=== PATIENT | female | born 1980 | race Caucasian/White ===

== ENCOUNTER 2022-09-10 07:20 | Outpatient (CLI) | payer OTHER ==
--- NOTE | 2022-09-10 10:41 | MRI Report ---
PROCEDURE: KNEE WO - LT INDICATIONS: KNEE PAIN TECHNIQUE: Noncontrast sagittal PD fast spin echo and T2 fast spin echo with fat saturation, sagittal 3-D gradie nt sequence with fat saturation; coronal T1 spin echo and PD fast spin echo with fat saturation, and axial PD fast spin echo with fat saturation through the knee. COMPARISON: None. FINDINGS: Image quality: Excellent. Menisci: The medial and lateral menisci demonstrate normal morphology and internal signal. The meni scal root ligaments appear intact. Cruciate ligaments: The anterior and posterior cruciate ligaments appear intact. Medial structures: The medial collateral ligament appears intact. Visualized portions of the pes ans erinus tendons appear normal. No abnormal bursal fluid. Lateral structures: The lateral collateral ligament, long and short heads of the biceps femoris tend on appear intact. The popliteus tendon appears normal. Iliotibial band appears normal. Anterior structures: The quadriceps and patellar tendons appear intact. Patellar alignment is ro l. There is moderate edema within the superolateral aspect of infrapatellar fat pad. Mild lateral pat ellar subluxation is present. Mild lateral ventral trochlear prominence is present. Bones and cartilage: No bone marrow contusions or fractures. There is mild degenerative marrow edema within the lateral patellar facet. There is mild tricompartment periarticular osteophyte formation. There is moderate articular cartilage loss diffusely overlying the weightbearing aspects of the media l femoral condyle and medial tibial plateau with superimposed high-grade articular cartilage loss ove rlying the mid/posterior weightbearing aspect of the medial femoral condyle. Mild articular cartilage loss diffusely overlies the weightbearing aspects of the lateral femoral condyle and lateral tibial plateau with a superimposed high-grade region of articular cartilage loss spanning 10 mm overlying th e posterior weightbearing aspect of the lateral femoral condyle. Severe articular cartilage loss over lies the lateral patellar facet inferiorly. Joint space: There is a small knee joint effusion. No Fulton's cyst. Normal appearing synovial plica e are incidentally noted. IMPRESSION: 1. No internal derangement. 2. Tricompartmental osteoarthritis with associated articular cartilage loss. 3. Findings consistent with lateral patellofemoral friction syndrome in the appropriate clinical sett ing. 4. Small knee joint effusion. Reviewed by: Bárbara Moody MD on 09/10/2022 10:40 AM PDT Approved by: Bárbara Moody MD on 09/10/2022 10:40 AM PDT Station ID: [id number]
--- NOTE | 2022-09-10 16:55 | MRI Report ---
PROCEDURE: KNEE WO - RT INDICATIONS: KNEE PAIN TECHNIQUE: Noncontrast sagittal PD fast spin echo and T2 fast spin echo with fat saturation, sagittal 3-D gradie nt sequence with fat saturation; coronal T1 spin echo and PD fast spin echo with fat saturation, and axial PD fast spin echo with fat saturation through the knee. COMPARISON: None. FINDINGS: Image quality: Excellent. Menisci: The medial and lateral menisci demonstrate normal morphology and internal signal. The meni scal root ligaments appear intact. Cruciate ligaments: The anterior and posterior cruciate ligaments appear intact. Medial structures: The medial collateral ligament appears intact. Visualized portions of the pes ans erinus tendons appear normal. No abnormal bursal fluid. Lateral structures: The lateral collateral ligament, long and short heads of the biceps femoris tend on appear intact. The popliteus tendon appears normal. Iliotibial band appears normal. Anterior structures: The patellar tendon is intact. Moderate T2 signal elevation within the quadricep s tendon. Superimposed low-grade partial thickness tears within the distal quadriceps tendon at the p atellar insertion site. Mild lateral patellar subluxation. Moderate lateral ventral trochlear promine nce. There is moderate edema within the superolateral aspect of the infrapatellar fat pad. Bones and cartilage: No bone marrow contusions or fractures. There is mild tricompartment periareola r articular osteophyte formation. Mild articular cartilage loss diffusely overlies the weightbearing aspects of the medial and lateral compartments. Moderate articular cartilage loss overlies the latera l patellar facet. Joint space: There is a moderate knee joint effusion. No Fulton's cyst. Normal appearing synovial pl icae are incidentally noted. IMPRESSION: 1. No internal derangement. 2. Tricompartmental loss or arthritis with associated articular cartilage loss. 3. Findings consistent with lateral patellofemoral friction syndrome in the appropriate clinical sett ing. Next line 4. Knee joint effusion. 4. Quadriceps tendinopathy with superimposed low-grade partial thickness tears. Reviewed by: Bárbara Moody MD on 09/10/2022 4:54 PM PDT Approved by: Bárbara Moody MD on 09/10/2022 4:54 PM PDT Station ID: [id number]
== END 2022-09-10 07:21 | disposition home or self-care (01) ==
LOC: DI 07:20
PROVIDERS: ATTEND Nurse Practitioner Family
DX: M17.12 Unilateral primary osteoarthritis, left knee (principal); M94.262 Chondromalacia, left knee; M25.462 Effusion, left knee; M17.0 Bilateral primary osteoarthritis of knee; M25.461 Effusion, right knee; S76.121A Laceration of right quadriceps muscle, fascia and tendon, initial encounter

== ENCOUNTER 2023-03-22 11:53 | Emergency (ER) | payer OTHER ==
[2023-03-22 12:02] VITALS: BP 105/72
[2023-03-22] MEDS ORDERED: AMOX/CLAV 875 MG/125 MG TABLET PO STA (12:06)
[2023-03-22] MEDS ORDERED: TETANUS/DIPHTHERIA/PERTUSSIS 0.5 ML SYRINGE IM ONE (12:06)
--- NOTE | 2023-03-22 12:10 | ED Physician Documentation ---
PD HPI WOUND RECHECK - Stated complaint Stated Complaint: CAT BITE, RT HAND - Chief complaint Chief Complaint: Wound - Histroy obtained from History obtained from: Patient (42-year-old with unknown tetanus status was bitten by her elderly cat to the right hand 2 nights ago and now with increased pain and swelling. No fevers.) PD PAST MEDICAL HISTORY - Past Medical History Past Medical History: No - Past Surgical History Past Surgical History: Yes HEENT: Tonsil/Adenoidectomy - Present Medications Home Medications: Ambulatory Orders Medication Instructions Recorded Confirmed Amox/Clav 875/125 [Augmentin] 1 each PO Q12H #20 tablet 03/22/23 - Allergies Allergies/Adverse Reactions: Allergies Allergy/AdvReac Type Severity Reaction Status Date / Time No Known Drug Allergies Allergy Verified 03/22/23 12:01 - Social History Does the pt smoke?: No Smoking Status: Never smoker Does the pt drink ETOH?: Yes Does the pt have substance abuse?: No - Immunizations Immunizations are current?: Yes PD ED PE NORMAL - Vitals Vital signs reviewed: Yes - General General: Alert and oriented X 3, No acute distress - Extremities Extremities: Other (There are puncture wounds on the dorsum of the right third and fourth digits, there is mild cellulitis and just a drop of pus from the fourth finger which was sent for culture.) - Neuro Neuro: Alert and oriented X 3, Normal speech Results - Vitals Vitals: Vital Signs - 24 hr 03/22/23 11:54 Temperature 37.2 C Heart Rate 59 L Respiratory 16 Rate Blood Pressure 105/72 O2 Saturation 98 Oxygen O2 Source Room air PD Medical Decision Making - ED course ED course: 42-year-old woman with mild/early wound infection related to a cat bite of the right hand/fingers. A culture was obtained and she is started on Augmentin and tetanus is updated and she was given close return precautions. Departure - Departure Disposition: 01 Home, Self Care Clinical Impression: Cat bite of right hand including fingers with infection Qualifiers: Encounter type: initial encounter Qualified Code(s): S61.451A - Open bite of ri ght hand, initial encounter; S61.259A - Open bite of unspecified finger without damage to nail, initial encounter; L08.9 - Local infection of the skin and subcutaneous tissue, unspecified; W55.01XA - Bitten by cat, initial encounter Condition: Good Record reviewed to determine appropriate education?: Yes Instructions: Bites Scratches Animal Prescriptions: Amox/Clav 875/125 [Augmentin] 1 each PO Q12H #20 tablet Comments: Return if the redness, swelling, or pain worsens or fails to improve over the next 2 to 3 days. As far as wound care you can just use soap and water and simple Band-Aids. Fill the antibiotics today and take the second dose tonight. Twice a day after that. We are performing a wound culture, the results should be done in 48-72 hours. If antibiotic change is necessary we will call you. Return if worse in the meantime, especially if you develop increased pain, fevers, cannot keep down the medication. Otherwise follow-up with your physician in approximately 2-3 days. Note for your records that you received a Tdap shot today.
== END 2023-03-22 12:25 | disposition home or self-care (01) ==
LOC: ED 11:53
DX: S61.451A Open bite of right hand, initial encounter (principal); L03.011 Cellulitis of right finger; W55.01XA Bitten by cat, initial encounter
CPT/HCPCS: 87070; 87077; 87181; 87205; 90471; 90715; 99283; A9270